=== PATIENT | male | born 1990 | race Caucasian/White ===

== ENCOUNTER 2018-10-28 19:29 | Emergency (ER) | payer BC ==
--- NOTE | 2018-10-28 19:53 | ED Physician Chart ---
ED Chief Complaint/HPI - Patient Information Date Seen:: 10/28/18 Time Seen:: 19:52 Chief Complaint:: Chest pain History of Present Illness:: 28 yo male had mid chest pain without SOB for 15 minutes 3 weeks ago when he was working. Changing body position would worsen the pain. Today, patient had 2nd episode of mid chest pain when standing. It was sharp pain lasting for 1 hour without radiation. Patient denied chest pressure or SOB. Patient took Ibuprofen 600mg po. Patient called a nurse of his insurance plan. The nurse recommended patient to go to ER. Patient was brought by girlfriend to [facility]. On arrival, patient stated that his patient had improved. Patient stated headache yesterday. Allergies:: Allergies Allergy/AdvReac Type Severity Reaction Status Date / Time No Known Allergies Allergy Verified 10/28/18 19:42 ED Review of Systems - Review of Systems General/Constitutional: No fever, No chills Skin: No rash Head: Headache Eyes: No pain ENT: No nasal drainage Neck: No neck pain Cardio Vascular: Chest pain, No palpitations Pulmonary: No SOB, Cough GI: No nausea, No vomiting Musculoskeletal: No bone or joint pain Neurological: No focal symptoms ED Past Medical History - Past Medical History Past Medical History: Other (Obesity) Social History: Smoker (1-2 cigarettes a week for 8 years), Alcohol ( Occasionally), Illicit Drug Use (Marijuana) Surgical History: None Family Medical History - Family Member Father Hx Family Diabetes: Yes ED Physical Exam - Physical Examination General/Constitutional: Awake, Alert Head: Atraumatic Eyes: PERRL, EOMI Skin: No skin lesions ENMT: Nasal exam nl Neck: No nuchal rigidity Respiratory: Clear to Auscultation, No Wheeze/Rhonchi/Rales Cardio Vascular: RRR, No murmur, gallop, rubs, NL S1 S2 GI: No tenderness/rebounding/guarding : No CVA tenderness Extremities: normal strength in all extremities Neuro/Psych: Normal motor strength, No focal deficits ED Labs/Radiology/EKG Results - Lab Results Results: Laboratory Last Values WBC 10.7 Th/cmm (4.8-10.8) 10/28/18 20:00 RBC 4.37 Mil/cmm (4.30-5.70) 10/28/18 20:00 Hgb 12.8 gm/dL (12-16) 10/28/18 20:00 Hct 39.2 % (41.0-60) L 10/28/18 20:00 MCV 89.7 fl (80-99) 10/28/18 20:00 MCH 29.4 pg (26.0-30.0) 10/28/18 20:00 MCHC Differential 32.8 pg (28.0-36.0) 10/28/18 20:00 RDW 12.7 % (11.5-20.0) 10/28/18 20:00 Plt Count 370 Th/cmm (150-400) 10/28/18 20:00 MPV 7.6 fl 10/28/18 20:00 Neutrophils % 60.7 % (40.0-80.0) 10/28/18 20:00 Lymphocytes % 28.2 % (20.0-50.0) 10/28/18 20:00 Monocytes % 7.2 % (2.0-10.0) 10/28/18 20:00 Eosinophils % 2.8 % (0.0-5.0) 10/28/18 20:00 Basophils % 1.1 % (0.0-2.0) 10/28/18 20:00 PT 10.2 SECONDS (9.5-11.5) 10/28/18 20:00 INR 0.98 (0.5-1.4) 10/28/18 20:00 PTT (Actin FS) 26.3 SECONDS (26.0-38.0) 10/28/18 20:00 Sodium 135 mEq/L (136-145) L 10/28/18 20:00 Potassium 4.0 mEq/L (3.5-5.1) 10/28/18 20:00 Chloride 100 mEq/L (98-107) 10/28/18 20:00 Carbon Dioxide 27.3 mEq/L (21.0-31.0) 10/28/18 20:00 Anion Gap 11.7 (7.0-16.0) 10/28/18 20:00 BUN 14 mg/dL (7-25) 10/28/18 20:00 Creatinine 0.8 mg/dL (0.7-1.3) 10/28/18 20:00 Est GFR ( Amer) > 60.0 ml/min (>90) 10/28/18 20:00 Est GFR (Non-Af Amer) > 60.0 ml/min 10/28/18 20:00 BUN/Creatinine Ratio 17.5 10/28/18 20:00 Glucose 100 mg/dL (70-105) 10/28/18 20:00 Calcium 8.9 mg/dL (8.6-10.3) 10/28/18 20:00 Total Bilirubin 0.4 mg/dL (0.3-1.0) 10/28/18 20:00 AST 22 U/L (13-39) 10/28/18 20:00 ALT 31 U/L (7-52) 10/28/18 20:00 Alkaline Phosphatase 60 U/L (34-104) 10/28/18 20:00 Creatine Kinase 150 U/L (30-223) 10/28/18 20:00 Troponin I < 0.01 ng/mL (0.01-0.05) L 10/28/18 20:00 B-Natriuretic Peptide 16.3 pg/mL (5.0-100.0) 10/28/18 19:50 Total Protein 7.5 gm/dL (6.0-8.3) 10/28/18 20:00 Albumin 3.7 gm/dL (4.2-5.5) L 10/28/18 20:00 Globulin 3.8 gm/dL 10/28/18 20:00 Albumin/Globulin Ratio 1.0 (1.0-1.8) 10/28/18 20:00 Triglycerides 272 mg/dL (<150) H 10/28/18 20:00 Cholesterol 148 mg/dL (<200) 10/28/18 20:00 LDL Cholesterol Direct 90 mg/dL (75-193) 10/28/18 20:00 HDL Cholesterol 27 mg/dL (23-92) 10/28/18 20:00 Lipase 15 U/L (11-82) 10/28/18 20:40 TSH 4.78 uIU/ml (0.34-5.60) 10/28/18 20:40 Urine Source MIDSTREAM 10/28/18 20:50 Urine Color YELLOW 10/28/18 20:50 Urine Clarity CLEAR (CLEAR) 10/28/18 20:50 Urine pH 7.0 (4.6 - 8.0) 10/28/18 20:50 Ur Specific [place] 1.015 (1.005-1.030) 10/28/18 20:50 Urine Protein NEGATIVE mg/dL (NEGATIVE) 10/28/18 20:50 Urine Glucose (UA) NEGATIVE mg/dL (NEGATIVE) 10/28/18 20:50 Urine Ketones NEGATIVE mg/dL (NEGATIVE) 10/28/18 20:50 Urine Blood NEGATIVE (NEGATIVE) 10/28/18 20:50 Urine Nitrate NEGATIVE (NEGATIVE) 10/28/18 20:50 Urine Bilirubin NEGATIVE (NEGATIVE) 10/28/18 20:50 Urine Urobilinogen 0.2 E.U./dL (0.2 - 1.0) 10/28/18 20:50 Ur Leukocyte Esterase NEGATIVE (NEGATIVE) 10/28/18 20:50 Urine RBC NONE SEEN /hpf (0-5) 10/28/18 20:50 Urine WBC 0-2 /hpf (0-5) 10/28/18 20:50 Ur Epithelial Cells NONE SEEN /lpf (FEW) 10/28/18 20:50 Urine Bacteria OCCASIONAL /hpf (NONE SEEN) 10/28/18 20:50 Urine Opiates Screen NEGATIVE (NEGATIVE) 10/28/18 20:50 Urine Methadone Screen NEGATIVE (NEGATIVE) 10/28/18 20:50 Ur Barbiturates Screen NEGATIVE (NEGATIVE) 10/28/18 20:50 Ur Tricyclics Screen NEGATIVE (NEGATIVE) 10/28/18 20:50 Ur Phencyclidine Scrn NEGATIVE (NEGATIVE) 10/28/18 20:50 Amphetamines Screen NEGATIVE (NEGATIVE) 10/28/18 20:50 U Methamphetamines Scrn NEGATIVE (NEGATIVE) 10/28/18 20:50 U Benzodiazepines Scrn NEGATIVE (NEGATIVE) 10/28/18 20:50 U Cocaine Metab Screen NEGATIVE (NEGATIVE) 10/28/18 20:50 U Cannabinoids Screen POSITIVE (NEGATIVE) H 10/28/18 20:50 - Radiology Results Results: CXR: no focal consolidation, no cardiomegaly - EKG Interpretations Rate & Rhythm: Sinus rhythm [place]: Normal axis Intervals: Normal inteval Comments:: Normal EKG ED Assessment - Assessment General Assessment: Chest pain Hypertriglyceridemia Morbid obesity Assessment/Comments:: CBC, CMP, lipid panel, HbA1c CXR, EKG Aspirin 325mg D/c home F/u PCP and cardiology for cardiac work up. Return to ER if symptoms worsen ED Septic Shock - . Is Septic Shock (SBP<90, OR Lactate>4 mmol\L) present?: No ED Reassessment (Disposition) - Reassessment Reassessment Condition:: Improved - Patient Disposition Discharge/Transfer:: Home
[2018-10-28 20:14] LABS: % BASOPHILS 1.1 % (0.0-2.0); % EOSINOPHILS 2.8 % (0.0-5.0); % LYMPHOCYTES 28.2 % (20.0-50.0); % MONOCYTES 7.2 % (2.0-10.0); % NEUTROPHILS 60.7 % (40.0-80.0); BASOPHILE ABSOLUTE 0.1 Th/cumm (0-0.2); EOSINOPHILE ABSOLUTE 0.3 Th/cmm (0.1-0.4); HEMATOCRIT 39.2 % (41.0-60); HEMOGLOBIN 12.8 gm/dL (12-16); MEAN CELL VOLUME 89.7 fl (80-99); MEAN CORPUSCULAR HEMOGLOBIN 29.4 pg (26.0-30.0); MEAN CORPUSCULAR HGB CONC 32.8 pg (28.0-36.0); MEAN PLATELET VOLUME 7.6 fl; MONOCYTE ABSOLUTE 0.8 Th/cmm (0.3-1.0); NEUTROPHILE ABSOLUTE 6.5 Th/cmm (1.8-8.0); PLATELET COUNT 370 Th/cmm (150-400); RED BLOOD COUNT 4.37 Mil/cmm (4.30-5.70); RED CELL DISTRIBUTION WIDTH 12.7 % (11.5-20.0); WHITE BLOOD COUNT 10.7 Th/cmm (4.8-10.8)
[2018-10-28 20:29] LABS: INR 0.98 (0.5-1.4); PROTHROMBIN TIME (TEST) 10.2 SECONDS (9.5-11.5)
[2018-10-28 20:33] LABS: ALBUMIN 3.7 gm/dL (4.2-5.5); ALKALINE PHOSPHATASE 60 U/L (34-104); ANION GAP 11.7 (7.0-16.0); BILIRUBIN,TOTAL 0.4 mg/dL (0.3-1.0); BUN - UREA NITROGEN 14 mg/dL (7-25); CALCIUM SERUM 8.9 mg/dL (8.6-10.3); CARBON DIOXIDE 27.3 mEq/L (21.0-31.0); CHLORIDE 100 mEq/L (98-107); CHOLESTEROL 148 mg/dL (<200); CREATININE - SERUM 0.8 mg/dL (0.7-1.3); CREATININE KINASE 150 U/L (30-223); GFR AFRICAN-AMERICAN > 60.0 ml/min (>90); GFR NON AFRICAN-AMERICAN > 60.0 ml/min; GLUCOSE 100 mg/dL (70-105); HDL -HIGH DENSITY LIPOPROTEIN 27 mg/dL (23-92); SGOT 22 U/L (13-39); SGPT/ALT 31 U/L (7-52); SODIUM SERUM 135 mEq/L (136-145); TOTAL PROTEIN,SERUM 7.5 gm/dL (6.0-8.3); TRIGLYCERIDES 272 mg/dL (<150)
[2018-10-28 21:09] LABS: URINE BILIRUBIN NEGATIVE (NEGATIVE); URINE BLOOD NEGATIVE (NEGATIVE); URINE GLUCOSE (UA) NEGATIVE (NEGATIVE); URINE KETONE NEGATIVE (NEGATIVE); URINE LEUKOCYTE ESTERASE NEGATIVE (NEGATIVE); URINE NITRATE NEGATIVE (NEGATIVE); URINE PROTEIN NEGATIVE (NEGATIVE); URINE SOURCE MIDSTREAM; URINE UROBILINOGEN 0.2 E.U./dL (0.2 - 1.0)
[2018-10-28 21:26] LABS: AMPHETAMINE URINE NEGATIVE (NEGATIVE); BARBITURATES URINE NEGATIVE (NEGATIVE); CANNABINOID THC POSITIVE (NEGATIVE); COCAINE METABOLITE QUAL URINE NEGATIVE (NEGATIVE); METHAMPHETAMINES QUAL URINE NEGATIVE (NEGATIVE); PHENCYCLIDINE (PCP) URINE NEGATIVE (NEGATIVE)
[2018-10-28 21:27] LABS: BENZODIAZEPINES QUAL URINE NEGATIVE (NEGATIVE); METHADONE URINE NEGATIVE (NEGATIVE); OPIATES (MORPHINE) QUAL. URINE NEGATIVE (NEGATIVE); TRICYCLICS (TCA) QUAL. URINE NEGATIVE (NEGATIVE)
[2018-10-28 21:32] LABS: URINE CLARITY CLEAR (CLEAR); URINE COLOR YELLOW
[2018-10-28 21:33] LABS: URINE MICROSCOPIC INDICATED? YES
[2018-10-28 21:34] LABS: URINE BACTERIA OCCASIONAL /hpf (NONE SEEN); URINE EPITHELIAL CELLS NONE SEEN /lpf (FEW); URINE RBC NONE SEEN /hpf (0-5); URINE WBC 0-2 /hpf (0-5)
--- NOTE | 2018-10-29 08:53 | Diagnostic Imaging Report ---
CHEST X-RAY: AP view INDICATION: pain COMPARISON: None FINDINGS: There is elevation of the right hemidiaphragm with increased right basal lung markings. There is no focal consolidation or pleural effusions The heart is at the upper limits of normal in size. The osseous structures demonstrate no acute abnormalities. IMPRESSION: Increased right basal lung markings favoring atelectatic changes. Faint infiltrate is considered less likely. No focal airspace consolidation identified.
== END 2018-10-28 21:30 | disposition home or self-care (01) ==
LOC: ER 19:29
DX: R07.89 Other chest pain (principal); E78.1 Pure hyperglyceridemia; E66.01 Morbid (severe) obesity due to excess calories; F17.210 Nicotine dependence, cigarettes, uncomplicated
CPT/HCPCS: 36415-UA; 71045-TC; 80053-TC; 80061-TC; 80307; 81001-TC; 82550-TC; 83036-90; 83690-TC; 83880-TC; 84443-TC; 84484-TC; 85025-TC; 85610-TC; 93005; Z7502